=== PATIENT | female | born 1995 | race Two or more races ===

== ENCOUNTER 2020-04-23 11:05 | Observation (INO) | payer BC, MEDICAID ==
[2020-04-23 13:04] LABS: Basophils # (auto) 0 10 ^3/uL (0-0.2); Basophils % (auto) 0.4 % (0.0-2.0); Eosinophils # (auto) 0 10 ^3/uL (0-0.8); Eosinophils % (auto) 0.2 % (0.0-7.0); Hematocrit 34.4 % (36.0-46.0); Hemoglobin 11.7 g/dL (12.2-16.2); Lymphocytes # (auto) 1.4 10 ^3/uL (0.4-5.4); Lymphocytes % (auto) 16.2 % (10.0-50.0); Mean Corpuscular Hgb Conc. 34.1 g/dL (32.0-36.0); Mean Corpuscular Volume 96.6 fL (80.0-100.0); Monocytes # (auto) 0.7 10 ^3/uL (0-1.3); Monocytes % (auto) 7.5 % (0.0-12.0); Neutrophils # (auto) 6.7 10 ^3/uL (1.6-8.6); Neutrophils % (auto) 75.7 % (37.0-80.0); Platelet Count (auto) 235 10^3/uL (140-450); Red Blood Cells 3.56 10^6/uL (4.0-5.20); Red Cell Distribution Width 13.8 % (11.8-14.3); White Blood Cell 8.9 10^3/uL (4.4-10.8)
[2020-04-23 13:21] LABS: Albumin 2.8 g/dL (3.4-5.0); Calcium 8.3 mg/dL (8.5-10.1); Potassium 3.7 mmol/L (3.5-5.1)
[2020-04-23 13:25] LABS: Bilirubin, Total 0.3 mg/dL (0.2-1.0); Total Protein 6.4 g/dL (6.4-8.2); Uric Acid 3.4 mg/dL (2.6-6.0)
== END 2020-04-23 13:50 | disposition home or self-care (01) | DRG 833 ==
LOC: LDRP 11:05
PROVIDERS: ADMIT Specialist; ATTEND Specialist
DX: O26.892 Other specified pregnancy related conditions, second trimester (principal); L29.9 Pruritus, unspecified; Z3A.23 23 weeks gestation of pregnancy
CPT/HCPCS: 36415; 59025; 80053; 81002; 84550; 85025; G0378

== ENCOUNTER 2020-06-03 02:05 | Observation (INO) | payer BC, MEDICAID ==
[~2020-06-03] VITALS: Ht 170.2 cm; Wt 74.8 kg
[2020-06-03] MEDS ORDERED: LACTATED RINGER'S 1,000 ML IV SCH (02:29)
[2020-06-03] MEDS ORDERED: LACTATED RINGER'S 1,000 ML IV ONE (02:29)
[2020-06-03] MEDS ORDERED: TERBUTALINE SULFATE 1 MG/ML 1ML VIAL SC ONE (02:42)
[2020-06-03] MEDS ORDERED: PREN1TAB52 PO (03:13)
[2020-06-03] MEDS ORDERED: URSO300C9 PO (03:14)
[2020-06-03] MEDS ORDERED: LEVO150T10 PO (03:14)
[2020-06-03] MEDS: TERBUTALINE SULFATE 1 MG/ML 1ML VIAL SC SCH ×2 (03:20→04:04)
== END 2020-06-03 05:00 | disposition still patient (30) ==
LOC: LDRP 02:05
PROVIDERS: ADMIT Obstetrics & Gynecology; ATTEND Obstetrics & Gynecology
DX: O9A.213 Injury, poisoning and certain other consequences of external causes complicating pregnancy, third trimester (principal); O26.893 Other specified pregnancy related conditions, third trimester; R10.9 Unspecified abdominal pain; R06.02 Shortness of breath; Z3A.29 29 weeks gestation of pregnancy; W01.198A Fall on same level from slipping, tripping and stumbling with subsequent striking against other object, initial encounter; Y93.89 Activity, other specified; Y92.89 Other specified places as the place of occurrence of the external cause
CPT/HCPCS: 59025; 76815; 81002; 82962; 94760; 96360; 96372; G0378; J3105

== ENCOUNTER 2020-06-03 05:12 | Emergency (ER) | payer BC, MEDICAID ==
[~2020-06-03] VITALS: Ht 170.2 cm; Wt 74.8 kg
[~2020-06-03 05:12] MED LIST: LEVO150T10 PO; PREN1TAB52 PO; URSO300C9 PO
[2020-06-03 07:39] VITALS: BP 120/67
== END 2020-06-03 07:53 | disposition home or self-care (01) ==
LOC: ER 05:12
DX: O26.893 Other specified pregnancy related conditions, third trimester (principal); S66.811A Strain of other specified muscles, fascia and tendons at wrist and hand level, right hand, initial encounter; Z88.8 Allergy status to other drugs, medicaments and biological substances; Z79.899 Other long term (current) drug therapy; Z3A.29 29 weeks gestation of pregnancy; W10.8XXA Fall (on) (from) other stairs and steps, initial encounter; Y93.89 Activity, other specified; Y92.89 Other specified places as the place of occurrence of the external cause; Y99.8 Other external cause status

== ENCOUNTER 2020-06-21 10:02 | Observation (INO) | payer BC, MEDICAID | END 2020-06-21 11:25 | disposition home or self-care (01) | LOC: LDRP 10:02 | PROVIDERS: ADMIT Obstetrics & Gynecology; ATTEND Obstetrics & Gynecology | DX: O23.43 Unspecified infection of urinary tract in pregnancy, third trimester (principal); Z3A.32 32 weeks gestation of pregnancy | CPT/HCPCS: 59025; 81002; 87086; G0378 ==

== ENCOUNTER 2020-06-27 10:49 | Observation (INO) | payer BC, MEDICAID ==
[2020-06-27] MEDS ORDERED: CEPH250C PO ×2 (11:32→11:33)
[2020-06-27 14:05] LABS: Albumin 2.3 g/dL (3.4-5.0); Calcium 8.5 mg/dL (8.5-10.1); Potassium 3.5 mmol/L (3.5-5.1)
[2020-06-27 14:08] LABS: BUN/Creatinine Ratio 7.9
[2020-06-27 14:24] LABS: Bilirubin, Total 0.4 mg/dL (0.2-1.0); Total Protein 6.1 g/dL (6.4-8.2)
== END 2020-06-27 12:48 | disposition home or self-care (01) ==
LOC: LDRP 10:49
PROVIDERS: ADMIT Specialist; ATTEND Specialist
DX: O26.613 Liver and biliary tract disorders in pregnancy, third trimester (principal); K83.1 Obstruction of bile duct; Z3A.33 33 weeks gestation of pregnancy
CPT/HCPCS: 36415; 59025; 76818; 80053; 81002; G0378

== ENCOUNTER 2020-07-01 13:07 | Observation (INO) | payer BC, MEDICAID ==
[~2020-07-01 13:07] MED LIST changes: +CEPH250C PO
== END 2020-07-01 14:35 | disposition home or self-care (01) ==
LOC: LDRP 13:07
PROVIDERS: ADMIT Obstetrics & Gynecology; ATTEND Obstetrics & Gynecology
DX: O26.613 Liver and biliary tract disorders in pregnancy, third trimester (principal); K83.1 Obstruction of bile duct; Z3A.33 33 weeks gestation of pregnancy
CPT/HCPCS: 59025; 76818; 81002; G0378

== ENCOUNTER 2020-07-01 13:53 | Observation (INO) | payer BC, MEDICAID | END 2020-07-01 14:35 | disposition home or self-care (01) | LOC: LDRP 13:53 | PROVIDERS: ADMIT Obstetrics & Gynecology; ATTEND Obstetrics & Gynecology | DX: O36.5930 Maternal care for other known or suspected poor fetal growth, third trimester, not applicable or unspecified (principal); Z3A.33 33 weeks gestation of pregnancy | CPT/HCPCS: G0378 ==

== ENCOUNTER 2020-07-04 10:27 | Observation (INO) | payer BC, MEDICAID ==
[~2020-07-04 10:27] MED LIST changes: -CEPH250C PO
[2020-07-04 13:19] LABS: Albumin 2.5 g/dL (3.4-5.0); Calcium 8.4 mg/dL (8.5-10.1)
[2020-07-04 13:23] LABS: BUN/Creatinine Ratio 6.3; Bilirubin, Total 0.4 mg/dL (0.2-1.0); Total Protein 6.2 g/dL (6.4-8.2)
[2020-07-04 13:36] LABS: Potassium 3.9 mmol/L (3.5-5.1)
== END 2020-07-04 13:32 | disposition home or self-care (01) ==
LOC: LDRP 10:27
PROVIDERS: ADMIT Specialist; ATTEND Specialist
DX: O26.613 Liver and biliary tract disorders in pregnancy, third trimester (principal); K83.1 Obstruction of bile duct; Z3A.34 34 weeks gestation of pregnancy
CPT/HCPCS: 36415; 59025; 76818; 80053; 81002; G0378

== ENCOUNTER 2020-07-11 13:39 | Observation (INO) | payer BC, MEDICAID ==
[~2020-07-11] VITALS: Ht 30.5 cm; Wt 0.5 kg
[2020-07-11] MEDS ORDERED: LACTATED RINGER'S 1,000 ML IV ONE (15:15)
[2020-07-11 16:02] LABS: Albumin 2.5 g/dL (3.4-5.0); Calcium 8.1 mg/dL (8.5-10.1); Potassium 3.8 mmol/L (3.5-5.1)
[2020-07-11 16:06] LABS: BUN/Creatinine Ratio 7.8; Bilirubin, Total 0.5 mg/dL (0.2-1.0); Total Protein 6.1 g/dL (6.4-8.2)
== END 2020-07-11 17:13 | disposition home or self-care (01) ==
LOC: LDRP 13:39 → UNDOADMOB 13:39 → UNDODISOB 17:13
PROVIDERS: ADMIT Specialist; ATTEND Specialist
DX: O60.03 Preterm labor without delivery, third trimester (principal); O26.613 Liver and biliary tract disorders in pregnancy, third trimester; K83.1 Obstruction of bile duct; O99.283 Endocrine, nutritional and metabolic diseases complicating pregnancy, third trimester; E03.9 Hypothyroidism, unspecified; O26.893 Other specified pregnancy related conditions, third trimester; L29.9 Pruritus, unspecified; Z87.891 Personal history of nicotine dependence; Z79.899 Other long term (current) drug therapy; Z3A.35 35 weeks gestation of pregnancy
CPT/HCPCS: 36415; 59025; 76818; 80053; 81002; 96360; G0378

== ENCOUNTER 2020-07-15 11:08 | Observation (INO) | payer BC, MEDICAID ==
[~2020-07-15] VITALS: Ht 170.2 cm; Wt 79.4 kg
[2020-07-15 13:30] LABS: Urine Bacteria FEW /hpf (None Seen); Urine Blood Negative /uL (Negative); Urine Specific Gravity 1.006 (1.001-1.035); Urine WBC 10 /hpf (0 - 5)
[2020-07-15] MEDS ORDERED: NIF10C PO (13:31)
[2020-07-15 13:41] LABS: Alcohol, Urine < 3.0 mg/dL (0-10); Amphetamine Screen, Urine NEGATIVE (NEGATIVE); Barbiturate Scree,Urine NEGATIVE (NEGATIVE); Benzodiazephine Screen, Urine NEGATIVE (NEGATIVE); Cannabinoid Screen, Urine NEGATIVE (NEGATIVE); Cocaine Screen, Urine NEGATIVE (NEGATIVE); Opiate Scree,Urine NEGATIVE (NEGATIVE); Phencyclidine Screen, Urine NEGATIVE (NEGATIVE)
[2020-07-15] MEDS ORDERED: cefTRIAXone 1GM/50ML D5W 50 ML IV ONE (13:45)
== END 2020-07-15 15:50 | disposition home or self-care (01) ==
LOC: LDRP 11:08 → TELE 14:00 → LDRP 14:02
PROVIDERS: ADMIT Specialist; ATTEND Specialist
DX: O26.613 Liver and biliary tract disorders in pregnancy, third trimester (principal); K83.1 Obstruction of bile duct; Z87.891 Personal history of nicotine dependence; Z79.899 Other long term (current) drug therapy; Z3A.35 35 weeks gestation of pregnancy
CPT/HCPCS: 59025; 76818; 80307; 81001; 81002; 96365; G0378; J0696

== ENCOUNTER 2020-07-18 13:58 | Observation (INO) | payer BC, MEDICAID ==
[~2020-07-18 13:58] MED LIST changes: +NIF10C PO
== END 2020-07-18 15:03 | disposition home or self-care (01) ==
LOC: LDRP 13:58
PROVIDERS: ADMIT Obstetrics & Gynecology; ATTEND Obstetrics & Gynecology
DX: O26.613 Liver and biliary tract disorders in pregnancy, third trimester (principal); K83.1 Obstruction of bile duct; O60.03 Preterm labor without delivery, third trimester; Z87.891 Personal history of nicotine dependence; Z3A.36 36 weeks gestation of pregnancy
CPT/HCPCS: 59025; 76818; 81002; G0378

== ENCOUNTER 2020-07-22 10:43 | Observation (INO) | payer BC, MEDICAID ==
[2020-07-22 11:52] LABS: Basophils # (auto) 0 10 ^3/uL (0-0.2); Basophils % (auto) 0.3 % (0.0-2.0); Eosinophils # (auto) 0 10 ^3/uL (0-0.8); Eosinophils % (auto) 0.5 % (0.0-7.0); Hemoglobin 11.4 g/dL (12.2-16.2); Lymphocytes # (auto) 1.4 10 ^3/uL (0.4-5.4); Lymphocytes % (auto) 17.4 % (10.0-50.0); Mean Corpuscular Hemoglobin 30.7 pg (28.0-32.0); Mean Corpuscular Hgb Conc. 33.5 g/dL (32.0-36.0); Mean Corpuscular Volume 91.7 fL (80.0-100.0); Monocytes # (auto) 0.6 10 ^3/uL (0-1.3); Monocytes % (auto) 7.1 % (0.0-12.0); Neutrophils # (auto) 6.1 10 ^3/uL (1.6-8.6); Neutrophils % (auto) 74.7 % (37.0-80.0); Platelet Count (auto) 183 10^3/uL (140-450); Red Blood Cells 3.71 10^6/uL (4.0-5.20); Red Cell Distribution Width 14.2 % (11.8-14.3); White Blood Cell 8.2 10^3/uL (4.4-10.8)
[2020-07-22 12:28] LABS: Albumin 2.4 g/dL (3.4-5.0); Potassium 3.9 mmol/L (3.5-5.1)
[2020-07-22 13:01] LABS: BUN/Creatinine Ratio 6.3; Bilirubin, Total 0.4 mg/dL (0.2-1.0); Total Protein 6.2 g/dL (6.4-8.2)
== END 2020-07-22 12:50 | disposition home or self-care (01) ==
LOC: LDRP 10:43
PROVIDERS: ADMIT Obstetrics & Gynecology; ATTEND Obstetrics & Gynecology
DX: O26.613 Liver and biliary tract disorders in pregnancy, third trimester (principal); K83.1 Obstruction of bile duct; Z3A.36 36 weeks gestation of pregnancy
CPT/HCPCS: 36415; 59025; 76818; 80053; 81002; 85025; G0378

== ENCOUNTER 2020-07-23 16:02 | Inpatient (IN) | payer BC, MEDICAID ==
[~2020-07-23] VITALS: Ht 170.2 cm; Wt 78.5 kg
[2020-07-23] MEDS ORDERED: PENICILLIN G POT 5MIL/D5 50ML 50 ML IV ONE (18:00)
[2020-07-23] MEDS ORDERED: BUTORPHANOL TARTRATE 2 MG/1 ML VIAL IV PRN ×2 (18:00)
[2020-07-23] MEDS ORDERED: DERMOPLAST 60ML BOTTLE TOP PRN (18:00)
[2020-07-23] MEDS ORDERED: WITCH HAZEL-GLYCERIN PAD TOP PRN (18:00)
[2020-07-23] MEDS ORDERED: PHISODERM TOP SOLN 240ML BTL TOP PRN (18:00)
[2020-07-23] MEDS ORDERED: PROMETHAZINE HCL 25 MG/ML 1ML IM PRN (18:00)
[2020-07-23] MEDS ORDERED: BETAMETHASONE ACET (6MG/ML) 5ML VIAL IM ONE (18:15)
[2020-07-23 18:39] LABS: Basophils # (auto) 0 10 ^3/uL (0-0.2); Basophils % (auto) 0.4 % (0.0-2.0); Eosinophils # (auto) 0 10 ^3/uL (0-0.8); Eosinophils % (auto) 0.2 % (0.0-7.0); Hematocrit 34.8 % (36.0-46.0); Hemoglobin 11.7 g/dL (12.2-16.2); Lymphocytes # (auto) 1.8 10 ^3/uL (0.4-5.4); Lymphocytes % (auto) 15.8 % (10.0-50.0); Mean Corpuscular Hemoglobin 30.7 pg (28.0-32.0); Mean Corpuscular Hgb Conc. 33.7 g/dL (32.0-36.0); Mean Corpuscular Volume 91.1 fL (80.0-100.0); Monocytes # (auto) 0.8 10 ^3/uL (0-1.3); Monocytes % (auto) 6.7 % (0.0-12.0); Neutrophils # (auto) 8.9 10 ^3/uL (1.6-8.6); Neutrophils % (auto) 76.9 % (37.0-80.0); Platelet Count (auto) 187 10^3/uL (140-450); Red Blood Cells 3.82 10^6/uL (4.0-5.20); Red Cell Distribution Width 14.4 % (11.8-14.3); White Blood Cell 11.5 10^3/uL (4.4-10.8)
[2020-07-23 18:48] LABS: INR 0.92 (0.9-1.15); Partial Thromboplastin Time 25.6 sec (23.0-31.2)
[2020-07-23 18:53] LABS: Albumin 2.5 g/dL (3.4-5.0); Calcium 8.4 mg/dL (8.5-10.1); Potassium 3.5 mmol/L (3.5-5.1)
[2020-07-23 18:59] LABS: BUN/Creatinine Ratio 8.1; Bilirubin, Total 0.6 mg/dL (0.2-1.0); Total Protein 6.5 g/dL (6.4-8.2); Uric Acid 4.5 mg/dL (2.6-6.0)
[2020-07-23 19:06] LABS: Urine Bacteria NONE SEEN /hpf (None Seen); Urine Blood 3+ /uL (Negative); Urine Specific Gravity 1.004 (1.001-1.035); Urine WBC 3 /hpf (0 - 5)
[2020-07-23 19:19] LABS: Alcohol, Urine < 3.0 mg/dL (0-10); Amphetamine Screen, Urine NEGATIVE (NEGATIVE); Barbiturate Scree,Urine NEGATIVE (NEGATIVE); Benzodiazephine Screen, Urine NEGATIVE (NEGATIVE); Cannabinoid Screen, Urine NEGATIVE (NEGATIVE); Cocaine Screen, Urine NEGATIVE (NEGATIVE); Opiate Scree,Urine NEGATIVE (NEGATIVE); Phencyclidine Screen, Urine NEGATIVE (NEGATIVE)
[2020-07-23] MEDS: LACTATED RINGER'S 1,000 ML IV SCH (20:04)
[2020-07-23] MEDS ORDERED: PENICILLIN G POTASSIUM 2,500,000 UNITS in D5W 5% 50 ML IV SCH (22:00)
[2020-07-23] MEDS ORDERED: PROMETHAZINE HCL 25 MG/ML 1ML IV PRN (23:00)
[2020-07-23] MEDS: PENICILLIN G POTASSIUM 2,500,000 UNITS in D5W 5% 50 ML IV SCH (23:44)
[2020-07-24] MEDS ORDERED: ePHEDrine SULFATE 50 MG/ML AMP IV ONE (01:30)
[2020-07-24] MEDS ORDERED: fentaNYL CITRATE 100 MCG/2 ML VL IV ONE (01:30)
[2020-07-24] MEDS ORDERED: NALOXONE HCL 0.4 MG/ML VIAL IV ONE (01:30)
[2020-07-24] MEDS ORDERED: ROPIVACAINE HCL 200 ML EPI SCH ×2 (01:30→02:15)
[2020-07-24] MEDS ORDERED: LIDOCAINE 2%HCL (LOCAL ANESTH.) INJ 20ML MDV IJ ONE (01:45)
[2020-07-24] MEDS: LACTATED RINGER'S 1,000 ML IV SCH ×2 (02:24→06:19)
[2020-07-24] MEDS: PENICILLIN G POTASSIUM 2,500,000 UNITS in D5W 5% 50 ML IV SCH (05:32)
[2020-07-24] MEDS ORDERED: LACT. RINGERS/OXYTOCIN 20UNITS 1,000 ML IV ONE ×2 (07:51→08:15)
[2020-07-24] MEDS ORDERED: IBUPROFEN 600 MG TAB PO PRN (08:30)
[2020-07-24] MEDS ORDERED: LACT. RINGERS/OXYTOCIN 20UNITS 1,000 ML IV SCH (09:15)
--- NOTE | 2020-07-24 10:28 | NUR ---
Ambulation: Patient OOB with standby assistance by RN. Patient ambulated to bathroom with steady gait. [facility]icare teaching provided with returned demonstration by patient. Unable to urinate at this time. Clean gown provided and bed linen changed. Patient ambulated back to bed with steady gait and no distress noted.
--- NOTE | 2020-07-24 10:29 | NUR ---
teaching given to pt Pt informed on benefits of , latch, and positions explained, pt verbalized understanding.
[2020-07-24 11:00] VITALS: BP 103/55
[2020-07-24] MEDS: IBUPROFEN 600 MG TAB PO PRN ×2 (14:34→19:25)
[2020-07-24 15:00] VITALS: BP 97/52
[2020-07-24 18:30] VITALS: BP 101/51
[2020-07-24 23:00] VITALS: BP 99/54
[2020-07-25 02:30] VITALS: BP 108/61
[2020-07-25] MEDS: IBUPROFEN 600 MG TAB PO PRN ×2 (03:10→15:05)
[2020-07-25 06:06] LABS: RPR Non Reactive (Non Reactive)
[2020-07-25 06:34] VITALS: BP 101/65
--- NOTE | 2020-07-25 06:42 | NUR ---
IV removal IV DC'd with sterile technique, catheter fully intact. Pressure dressing applied to site. Patient tolerated well.
--- NOTE | 2020-07-25 10:15 | NUR ---
REPORT RECEIVED FROM Bang RICHTER RN.
[2020-07-25 10:47] VITALS: BP 117/60
--- NOTE | 2020-07-25 10:49 | NUR ---
Discharge: Discharge instructions given as ordered. Pt encouraged to follow up with CHIEF OPERATOR HYDROFORMER as instructed. All questions and concerns addressed. Patient verbalized understanding. Medication reconciliation completed and copy given to patient. Patient encouraged to prepare to depart unit.
[2020-07-25] MEDS ORDERED: LEVO150T10 PO (11:51)
[2020-07-25 14:42] VITALS: BP 99/53
--- NOTE | 2020-07-25 16:29 | NUR ---
Discharge: Patient taken to vehicle via ambulated with all personal belongings, accompanied by staff and family member. No distress noted at time of departure, no adverse changes in status since initial assessment.
== END 2020-07-25 16:29 | disposition home or self-care (01) | DRG 805 ==
LOC: LDRP 16:02 → OBSVTOIN 17:50 → LDRP 17:51
PROVIDERS: ADMIT Obstetrics & Gynecology; ATTEND Obstetrics & Gynecology
PROC: 10E0XZZ Delivery of Products of Conception, External Approach (ICD-10-PCS; principal; 2020-07-24)
PROC: 3E0R3BZ Introduction of Anesthetic Agent into Spinal Canal, Percutaneous Approach (ICD-10-PCS; 2020-07-24)
PROC: 00HU33Z Insertion of Infusion Device into Spinal Canal, Percutaneous Approach (ICD-10-PCS; 2020-07-24)
DX: O26.62 Liver and biliary tract disorders in childbirth (principal); O60.23X0 Term delivery with preterm labor, third trimester, not applicable or unspecified; Z37.0 Single live birth; K83.1 Obstruction of bile duct; O76 Abnormality in fetal heart rate and rhythm complicating labor and delivery; Z20.828 Contact with and (suspected) exposure to other viral communicable diseases; Z3A.37 37 weeks gestation of pregnancy; Z88.8 Allergy status to other drugs, medicaments and biological substances
CPT/HCPCS: 36415; 59025; 59409; 76815; 80053; 80307; 81001; 84550; 85025; 85610; 85730; 86592; 86850; 86900; 86901; 87426; 96360; 96361; 96365; 96366; 96374; 96375; G0378; J2540; J2590; J7060

== ENCOUNTER 2024-05-23 08:07 | Emergency (ER) | payer BC, MEDICAID ==
[~2024-05-23] VITALS: Ht 170.2 cm; Wt 70.0 kg
[~2024-05-23 08:07] MED LIST changes: -NIF10C PO; -URSO300C9 PO
[2024-05-23 08:48] LABS: Basophils # (auto) 0 10 ^3/uL (0-0.2); Basophils % (auto) 0.4 % (0.0-2.0); Eosinophils # (auto) 0 10 ^3/uL (0-0.8); Eosinophils % (auto) 0.4 % (0.0-7.0); Hematocrit 37.7 % (36.0-46.0); Lymphocytes # (auto) 1.5 10 ^3/uL (0.4-5.4); Lymphocytes % (auto) 22.2 % (10.0-50.0); Mean Corpuscular Hemoglobin 33.2 pg (28.0-32.0); Mean Corpuscular Hgb Conc. 34.4 g/dL (32.0-36.0); Mean Corpuscular Volume 96.3 fL (80.0-100.0); Monocytes # (auto) 0.6 10 ^3/uL (0-1.3); Monocytes % (auto) 9.6 % (0.0-12.0); Neutrophils # (auto) 4.5 10 ^3/uL (1.6-8.6); Neutrophils % (auto) 67.4 % (37.0-80.0); Nucleated Red Blood Cells % 0.1 %; Platelet Count (auto) 314 10^3/uL (140-450); Red Blood Cells 3.92 10^6/uL (4.0-5.20); Red Cell Distribution Width 15.1 % (11.8-14.3); White Blood Cell 6.6 10^3/uL (4.4-10.8)
[2024-05-23 09:12] LABS: Alanine Aminotransferase 26 U/L (7-40); Albumin 4.9 g/dL (3.2-4.8); Alkaline Phosphatase 66 U/L (46-116); Anion Gap 8 (5-15); Aspartate Aminotransferase 24 U/L (13-40); BUN/Creatinine Ratio 9.8 (10.0-20.0); Blood Urea Nitrogen 8 mg/dL (9-23); Calcium 10.5 mg/dL (8.7-10.4); Carbon Dioxide 27 mmol/L (20-30); Chloride 103 mmol/L (98-107); Glucose 109 mg/dL (74-106); Sodium 138 mmol/L (136-145)
[2024-05-23 09:13] LABS: Bilirubin, Total 1.1 mg/dL (0.2-1.0); Total Protein 8.2 g/dL (5.7-8.2)
[2024-05-23 09:24] LABS: Urine Bacteria FEW /hpf (None Seen); Urine Blood Negative /uL (Negative); Urine Clarity Turbid (Clear); Urine Color Yellow (Yellow); Urine Mucus FEW (None Seen); Urine Protein, UAD 2+ (Negative); Urine Urobilinogen 3 mg/dL (Negative); Urine WBC 8 /hpf (0 - 5); Urine pH 6.5 (5.0-9.0)
[2024-05-23 09:55] LABS: Amphetamine Screen, Urine Neg (NEGATIVE)
[2024-05-23 09:57] LABS: Barbiturate Scree,Urine Neg (NEGATIVE)
[2024-05-23 09:58] LABS: Cocaine Screen, Urine Neg (NEGATIVE); Opiate Scree,Urine Neg (NEGATIVE)
[2024-05-23 09:59] LABS: Benzodiazephine Screen, Urine Neg (NEGATIVE); Cannabinoid Screen, Urine Neg (NEGATIVE); Phencyclidine Screen, Urine Neg (NEGATIVE)
[2024-05-23 11:05] VITALS: BP 107/56; PULSE 69; RESP 16; TEMP 98.2; O2SAT 99
[2024-05-23] MEDS: LORazepam 0.5 MG TAB PO ONE (14:07)
== END 2024-05-23 17:30 | disposition left against medical advice (07) ==
LOC: ER 08:07
DX: F41.9 Anxiety disorder, unspecified (principal); R07.89 Other chest pain; E03.9 Hypothyroidism, unspecified; F17.210 Nicotine dependence, cigarettes, uncomplicated; Z98.890 Other specified postprocedural states; Z88.8 Allergy status to other drugs, medicaments and biological substances; Z79.899 Other long term (current) drug therapy
CPT/HCPCS: 36415; 71045; 80053; 80307; 81001; 84443; 84484; 85025; 93005

== ENCOUNTER 2025-03-30 06:17 | Day surgery (SDC) | payer MEDICAID ==
[2025-03-28 11:22] LABS: Hematocrit 33.7 % (36.0-46.0); Hemoglobin 11.8 g/dL (12.2-16.2); Mean Corpuscular Hemoglobin 34.7 pg (28.0-32.0); Mean Corpuscular Volume 99.3 fL (80.0-100.0); Nucleated Red Blood Cells % 0.0 %
[2025-03-28 11:23] LABS: Urine Protein, UAD Negative (Negative)
--- NOTE | 2025-03-28 11:31 | DVHHP ---
ADMIT DATE: 03/30/2025 CHIEF COMPLAINT: Desires bilateral tubal ligation. HISTORY OF PRESENT ILLNESS: The patient is a 29-year-old 3, para 2-0-1-2 admitted for laparoscopic placement of Filshie clips. The patient does not want any other form of contraception. She wishes to have bilateral tubal ligation. Risks, complications, failure rate, and use of Filshie clips discussed with the patient. The patient fully understands. She wishes to proceed with planned procedure. PAST MEDICAL HISTORY: None. PAST SURGICAL HISTORY: D and C. SOCIAL HISTORY: None. FAMILY HISTORY: None. OBSTETRIC AND GYNECOLOGIC HISTORY: 2 normal vaginal deliveries. REVIEW OF SYSTEMS: Consistent with HPI. PHYSICAL EXAMINATION: VITAL SIGNS: Stable, afebrile. HEENT: Within normal limits. CARDIOVASCULAR: Regular rate and rhythm. LUNGS: Clear to auscultation. BREASTS: Symmetrical, no masses. ABDOMEN: Soft, nontender. PELVIC: External genitalia within normal limits. Vagina normal. Cervix grossly normal appearing. Uterus 7-week size. Adnexa nonpalpable. EXTREMITIES: No clubbing, cyanosis, or edema. IMPRESSION: Multiparity, desires tubal sterilization. PLAN: Laparoscopic placement of Filshie clips. Informed consent obtained. Risks and complications of surgery including infection, bleeding, hematoma formation, injury to bowel or bladder, surrounding organ, possibility of DVT, pulmonary embolism, and risks of anesthesia were discussed with the patient. Options reviewed. All questions answered. The patient fully understands. She wishes to proceed with planned procedure. DO ALESSIO Albararn/ANYI/MARCI TID: [id number] RECEIPT: [id number]
[2025-03-28 11:44] LABS: INR 1.07 (0.9-1.15); Partial Thromboplastin Time 28.5 SEC (24.5-34.5); Prothrombin Time 11.3 sec (9.3-11.8)
[2025-03-28 11:46] LABS: Alanine Aminotransferase 16 U/L (7-40); Alkaline Phosphatase 50 U/L (46-116); Anion Gap 8 (5-15); BUN/Creatinine Ratio 15.6 (10.0-20.0); Blood Urea Nitrogen 14 mg/dL (9-23); Calcium 10.0 mg/dL (8.7-10.4); Carbon Dioxide 27 mmol/L (20-31); Chloride 104 mmol/L (98-107); Glucose 82 mg/dL (74-106); Potassium 4.2 mmol/L (3.5-5.1); Sodium 139 mmol/L (136-145); Total Protein 7.9 g/dL (5.7-8.2)
[2025-03-28 11:47] LABS: Albumin 5.1 g/dL (3.2-4.8); Bilirubin, Total 1.3 mg/dL (0.2-1.0)
[~2025-03-30] VITALS: Ht 170.2 cm; Wt 68.0 kg
[2025-03-30] MEDS ORDERED: SUCCINYLCHOLINE CHLORIDE 20 MG/ML 10ML VIAL IV ONE (06:54)
[2025-03-30] MEDS ORDERED: fentaNYL CITRATE 100 MCG/2 ML VL ONE (06:57)
[2025-03-30] MEDS ORDERED: HYDROmorphone HCL 2 MG/ML VL/or syr ONE (06:57)
[2025-03-30] MEDS ORDERED: PROPOFOL 10 MG/ML 20 ML IV ONE (06:58)
[2025-03-30] MEDS ORDERED: ONDANSETRON HCL 4 MG/2 ML VIAL ONE (07:09)
[2025-03-30] MEDS: ceFAZolin 2 GM/D5W50ml 50 ML IV ONE (07:10)
[2025-03-30] MEDS ORDERED: IBUP-1456 PO (07:12)
[2025-03-30] MEDS ORDERED: ZOFR4T PO (07:12)
[2025-03-30] MEDS ORDERED: HYDR-4072 PO (07:12)
[2025-03-30] MEDS ORDERED: ROCURONIUM 10MG/ML 10ML VIAL IV ONE (07:14)
[2025-03-30] MEDS ORDERED: LACTATED RINGER'S 1,000 ML IV SCH (07:15)
[2025-03-30] MEDS ORDERED: ONDANSETRON HCL 4 MG/2 ML VIAL IV PRN (07:15)
[2025-03-30] MEDS ORDERED: SUGAMMADEX 200mg/2ml Vial (100MG/ML) IV ONE (07:34)
[2025-03-30] MEDS: LIDOCAINE W/ EPINEPHRINE 1% 20ML VIAL ONE (07:38)
[2025-03-30] MEDS: BUPIVACAINE HCL 0.25% P/F 10 ML VIAL ONE (07:38)
[2025-03-30 07:44] VITALS: O2SAT 99
--- NOTE | 2025-03-30 07:58 | DVHOP2 ---
Operative Report DATE OF OPERATION: 03/30/25 PREOPERATIVE DIAGNOSES: 1. Desires elective tubal sterilization. POSTOPERATIVE DIAGNOSES: 1. Desires elective tubal sterilization. SURGEON: Juanita Ny D.O./marcus ANESTHESIOLOGIST: gila TYPE OF ANESTHESIA : General. CONSENT: The patient was informed of the risks and benefits of the procedure. The patient was informed of the risks and benefits of the procedure. These include but are not limited to , complications of anesthesia, postoperative infection, incomplete relief of symptoms, recurrence of symptoms, damage to blood vessels, nerves and tendons, deep venous thrombosis, pulmonary embolism and possible need for repeat surgery in the future. FINDINGS: Cervix is grossly normal appearing. Uterus is 10 weeks' size. Adnexa nonpalpable. COMPLICATIONS: None. BLOOD PRODUCTS USED: None. PROCEDURES: Laparoscopic placement of Filschi Clips to bilateral tubes PROCEDURE IN DETAIL: The patient was taken to the operating room where she was placed under general anesthesia. The patient was then prepped and draped in the usual sterile manner in the dorsal lithotomy position. The bladder was emptied using a straight catheter. Examination under anesthesia revealed the above findings. A weighted speculum was placed in the vagina. The anterior lip of the cervix was grasped using single-tooth tenaculum. Cervix was dilated. Uterus sounded to 10 cm. HUMI catheter was placed. Attention was then turned to the abdomen where a Veress needle was introduced. Abdomen was distended with 3L of CO2 gas. Using Visiport, abdomen was entered under direct visualization. Survey of abdominal cavity revealed normal finding. A 8 mm trocar was placed into the suprapubic region. Filshie clip was then loaded on the right tube as well as the left. No bleeding was noted. All the instruments were removed from the abdomen and pelvis. CO2 gas released. Incisional ports were closed using #4-0 Vicryl and kelsey for the larger port. The patient tolerated the procedure well. All instruments were removed from the patient's cervix. The patient was taken to the recovery room in a stable condition. ESTIMATED BLOOD LOSS: 20 mL Visit Coding OBGYN Date of Service: Mar 30, 2025 Billing Provider: JUANITA NY DO MERCHANDISING COORDINATOR Common Visit Codes: [id number] INP/OBS CARE (HIGH) MERCHANDISING COORDINATOR Procedure Codes: 32348-UVB.SURG:ON OVIDUCT/OVARY JUANITA NY DO Mar 30, 2025 07:58
[2025-03-30] MEDS ORDERED: HYDROmorphone HCL 2 MG/ML VL/or syr IV PRN (08:00)
[2025-03-30] MEDS ORDERED: MEPERIDINE HCL (25 MG/ML) 1ML VIAL IV PRN (08:00)
[2025-03-30] MEDS ORDERED: ONDANSETRON HCL 4 MG/2 ML VIAL IV ONE (08:00)
--- NOTE | 2025-03-30 08:00 | POSTOP ---
Post-Operative Note Post-Operative Note Preop Diagnosis desires sterilization Postop Diagnosis: desires sterilization Operation performed laparosocpic placement of filschie clips Specimen na Anesthesia: General Anesthesiologist: annygen Blood Loss(fluid mgmt) 20ml Surgeon Nicky Ny Contracting Officer marcus Implant filschie Complications & Mgmt none Date 03/30/25 Time 07:59 Visit Coding OBGYN Date of Service: Mar 30, 2025 Billing Provider: INCKY NY DO FILLING AND STAPLING MACHINE OPERATOR Common Visit Codes: [id number] INP/OBS CARE (HIGH) FILLING AND STAPLING MACHINE OPERATOR Procedure Codes: [id number]-MKI.SURG:ON OVIDUCT/OVARY NICKY NY DO Mar 30, 2025 08:00
--- NOTE | 2025-03-30 08:01 | DVHDS2 ---
Physician Discharge Progress N Final Diagnosis: desires sterilization Operations or Procedures: Operations or Procedures laparosocpic placement of filschie clips Condition on Discharge: Good Disposition: Home Discharge Instructions: Diet: Regular Activity: Light activity Follow Up/Referral: 1w Medications: zofran, Follow Up Care: Specialist: 1w Discharge Statement: "Patient was advised to return to the ER or call 911 if any headaches, dizziness, shortness of breath, chest pain, abdominal pain, bleeding, fevers, or worsening of medical condition. Patient was counseled about treatment plan, medications, possible side effects, patientverbalized understanding. All questions were answered to the best of my ability. This discharge took greater then 30 minutes in planning, reviewing documentation, counseling the patient, and discussing with other team members." Visit Coding OBGYN Date of Service: Mar 30, 2025 Billing Provider: NICKY MANCIA DO TOUCH UP WORKER Common Visit Codes: [id number] INP/OBS CARE (HIGH) TOUCH UP WORKER Procedure Codes: [id number].SURG:ON OVIDUCT/OVARY NICKY MANCIA DO Mar 30, 2025 08:01
[2025-03-30] MEDS: ACETAMINOPHEN IV 1000 MG/100ML (10MG/ML) IV PRN (08:05)
[2025-03-30 08:41] VITALS: BP 104/61; PULSE 48; RESP 18; O2SAT 96
== END 2025-03-30 08:49 | disposition home or self-care (01) ==
LOC: SUR 06:17
PROVIDERS: ATTEND Obstetrics & Gynecology
DX: Z30.2 Encounter for sterilization (principal); E03.9 Hypothyroidism, unspecified; Z79.899 Other long term (current) drug therapy; Z98.890 Other specified postprocedural states; Z88.8 Allergy status to other drugs, medicaments and biological substances
CPT/HCPCS: 36415; 58671; 80053; 81001; 81025; 84702; 85025; 85610; 85730; 86850; 86900; 86901; A4264; J0330; J0690; J1100; J1171; J2405; J2704; J3010; J3490

== ENCOUNTER 2025-08-28 13:36 | Inpatient (IN) | payer MEDICAID ==
[~2025-08-28] VITALS: Ht 170.2 cm; Wt 72.0 kg
[~2025-08-28 13:36] MED LIST changes: +HYDR-4072 PO; +IBUP-1456 PO; +ZOFR4T PO
[2025-08-28] MEDS: SODIUM CHLORIDE 0.9% 1,000 ML IV ONE (14:30)
[2025-08-28 15:07] LABS: Hematocrit 32.1 % (36.0-46.0); Hemoglobin 11.2 g/dL (12.2-16.2); Mean Corpuscular Hemoglobin 33.9 pg (28.0-32.0); Mean Corpuscular Volume 97.2 fL (80.0-100.0); Nucleated Red Blood Cells % 0.1 %
[2025-08-28 15:22] LABS: Chloride 100 mmol/L (98-107); Potassium 3.6 mmol/L (3.5-5.1); Sodium 139 mmol/L (136-145)
[2025-08-28 15:23] LABS: Anion Gap 8 (5-15); Calcium 10.0 mg/dL (8.7-10.4)
[2025-08-28 15:28] LABS: BUN/Creatinine Ratio 8.9 (10.0-20.0); Blood Urea Nitrogen 11 mg/dL (9-23)
[2025-08-28 15:29] LABS: Carbon Dioxide 31 mmol/L (20-31); Glucose 65 mg/dL (74-106)
--- NOTE | 2025-08-28 16:31 | ED.PDOC ---
History of Present Illness HPI Comments 29 y/o F, with PMHx of Deion's Disease and anxiety presents to the ED for CC of abnormal labs. Patient states, she was sent from her PCP office d/t elevated TSH level of 384. Patient reports symptoms of dizziness, extremity numbness, and increased fatigue in association Patient endorses, being non-complaint with medications for x2-3years. Patient denies nausea, vomiting, constipation, weight loss, brain fog, or irregular menstrual periods. No other symptoms or modifying factors are present at this time. Chief Complaint: Abnormal LAB's Time Seen by MD: 14:11 Primary Care Provider: BURAK Allergies: Coded Allergies: Nitrofurantoin (Verified Allergy, Severe, 06/21/20) THROAT SWELLING Sulfamethoxazole w/Trimethoprim (Verified Allergy, Mild, Red and itchy, 07/23/20) Home Meds Active Scripts Ondansetron Odt 4MG Tab (ZOFRAN PO) 4 Mg Tb, 4 MG PO Q4HPRN PRN for 7 Days, #35 TAB ODT TAB-DISSOLVE IN MOUTH, THEN SWALLOW Prov:NICKY MANCIA DO 03/30/25 Ibuprofen (Ibuprofen) 800 Mg Tab, 800 MG PO TID PRN for 4 Days, #12 TAB Prov:NICKY MANCIA DO 03/30/25 Hydrocodone-Acetaminophen (Hydrocodone/Acetaminophen 10-325 mg) 1 Tab Tab, 1 TAB PO Q6HPRN PRN for 5 Days, #20 TAB Prov:NICKY MANCIA DO 03/30/25 Reported Medications Levothyroxine Sodium (Levothyroxine Sodium) 150 Mcg Tab, 150 MCG PO QAM for 30 Days 07/25/20 Vit W/ Ferrous Fumara ( Vitamins Plus Lo 27-1 mg) 1 Tab Tab, 1 TAB PO for SUPPLEMENT, TAB 06/03/20 Mode of Arrival: Ambulatory Severity: Moderate Timing: Minutes Duration: Since onset Prehospital treatment: None Past Medical History PAST MEDICAL HISTORY: Anxiety, Thyroid RETAIL CLIENT SOLUTIONS ANALYST History: No Pertinent RETAIL CLIENT SOLUTIONS ANALYST History Family History Family History: Unknown Social History Smoker: Cigarettes Alcohol: Denies ETOH Use Drugs: Denies Drug Use Lives In: Home Constitutional: reports: fatigue; denies: chills, diaphoresis, fever, malaise, sweats, weakness, others EENTM: denies: blurred vision, double vision, ear bleeding, ear discharge, ear drainage, ear pain, ear ringing, eye pain, eye redness, hearing loss, mouth pain, mouth swelling, nasal discharge, nose bleeding, nose congestion, nose pain, photophobia, tearing, throat pain, throat swelling, voice changes, others Respiratory: denies: cough, hemoptysis, orthopnea, SOB at rest, shortness of breath, SOB with excertion, stridor, wheezing, others Cardiovascular: denies: chest pain, dizzy spells, diaphoresis, Dyspnea on exertion, edema, irregular heart beat, left arm pain, lightheadedness, palpitations, PND, syncope, others Gastrointestinal: denies: abdomen distended, abdominal pain, blood streaked bowels, constipated, diarrhea, dysphagia, difficulty swallowing, hematemesis, melena, nausea, poor appetite, poor fluid intake, rectal bleeding, rectal pain, vomiting, others Genitourinary: denies: abnormal vagina bleeding, burning, dyspareunia, dysuria, flank pain, frequency, hematuria, incontinence, pain, , vagina discharge, urgency, others Neurological: reports: dizziness, numbness; denies: fainting, headache, left sided numbness, left sided weakness, paresthesia, pre-existing deficit, right sided numbness, right sided weakness, seizure, speech problems, tingling, tremors, weakness, others Musculoskeletal: denies: back pain, gout, joint pain, joint swelling, muscle p ain, muscle stiffness, neck pain, others Integumetry: denies: bruises, change in color, change in hair/nails, dryness, laceration, lesions, lumps, rash, wounds, others Allergic/Immunocompromised: denies: Difficulty Healing, Frequent Infections, Hives, Itching, others Hematologic/Lymphatic: denies: anemia, blood clots, easy bleeding, easy bruising, swollen glands, others Endocrine: denies: excessive hunger, excessive sweating, excessive thirst, excessive urination, flushing, intolerance to cold, intolerance to heat, unexplained weight gain, unexplained weight loss, others Psychiatric: denies: anxiety, bipolar disorder, depression, hopeless, panic disorder, schizophrenia, sleepless, suicidal, others All Other Systems: Reviewed and Negative Physical Exam General Appearance: No Apparent Distress, Normal HEENT: Normal ENT Inspection, Pharynx Normal Neck: Full Range of Motion, Non-Tender, Normal, Normal Inspection Respiratory: Chest Non-Tender, Lungs Clear, No Accessory Muscle Use, No Respiratory Distress, Normal Breath Sounds Cardiovascular: No Edema, No Murmur, No Gallop, Normal Peripheral Pulses, Regular Rate/Rhythm Breast Exam: Deferred Gastrointestinal: No Organomegaly, Non Tender, No Pulsatile Mass, Normal Bowel Sounds, Soft Genitalia: Deferred Pelvic: Deferred Rectal: Deferred Extremities: No calf tenderness, Normal capillary refill, Normal inspection, Normal range of motion, Non-tender, No pedal edema Musculoskeletal : Apperance: Normal Neurologic: Alert, police pilot II-XII nml as Tested, No Motor Deficits, Normal Affect, Normal Mood, No Sensory Deficits Cerebellar Function: Normal Reflexes: Normal Skin: Dry, Normal Color, Warm Lymphatic: No Adenopathy Was a procedure done? Was a procedure done?: No Differential Dx Considerations may include: Deion's disease, hypothyroidism , myxedema coma, adrenal crisis, sepsis X-Ray, Labs, Meds, VS Vital Signs Date Time Temp Pulse Resp B/P (MAP) Pulse Ox O2 Delivery O2 Flow Rate FiO2 08/28/25 13:43 97.6 78 18 115/71 100 97.6 Lab Test 08/28/25 14:18 08/28/25 14:15 08/28/25 13:53 Range/Units White Blood Count 4.2 L 4.4-10.8 10^3/uL Red Blood Count 3.30 L 4.0-5.20 10^6/uL Hemoglobin 11.2 L 12.2-16.2 g/dL Hematocrit 32.1 L 36.0-46.0 % Mean Corpuscular Volume 97.2 80.0-100.0 fL Mean Corpuscular Hemoglobin 33.9 H 28.0-32.0 pg Mean Corpuscular Hemoglobin Concent 34.8 32.0-36.0 g/dL Red Cell Distribution Width 15.4 H 11.8-14.3 % Platelet Count 294 140-450 10^3/uL Mean Platelet Volume 7.4 6.9-10.8 fL Neutrophils (%) (Auto) 47.9 37.0-80.0 % Lymphocytes (%) (Auto) 40.8 10.0-50.0 % Monocytes (%) (Auto) 9.7 0.0-12.0 % Eosinophils (%) (Auto) 0.9 0.0-7.0 % Basophils (%) (Auto) 0.7 0.0-2.0 % Neutrophils # (Auto) 2.0 1.6-8.6 10 ^3/uL Lymphocytes # (Auto) 1.7 0.4-5.4 10 ^3/uL Monocytes # (Auto) 0.4 0-1.3 10 ^3/uL Eosinophils # (Auto) 0 0-0.8 10 ^3/uL Basophils # (Auto) 0 0-0.2 10 ^3/uL Nucleated Red Blood Cells 0.1 % Sodium Level 139 136-145 mmol/L Potassium Level 3.6 3.5-5.1 mmol/L Chloride Level 100 98-107 mmol/L Carbon Dioxide Level 31 20-31 mmol/L Anion Gap 8 5-15 Blood Urea Nitrogen 11 9-23 mg/dL Creatinine 1.24 H 0.550-1.02 mg/dL Glomerular Filtration Rate Calc 60 >90 mL/min BUN/Creatinine Ratio 8.9 L 10.0-20.0 Serum Glucose 65 L 74-106 mg/dL Calcium Level 10.0 8.7-10.4 mg/dL Thyroid Stimulating Hormone (TSH) > 150.00 H 0.55-4.78 uIU/mL Free Thyroxine (T4) Calculated 0.14 L 0.89-1.76 ng/dL Urine Color Colorless Yellow Urine Clarity Clear Clear Urine pH 6.5 5.0-9.0 Urine Specific [place] 1.005 1.001-1.035 Urine Protein Negative Negative Urine Ketones Negative Negative Urine Blood Negative Negative /uL Urine Nitrite Negative Negative Urine Bilirubin Negative Negative Urine Urobilinogen Normal Negative mg/dL Urine Leukocyte Esterase Negative Negative /uL Urine RBC None seen 0 - 4 /hpf Urine Microscopic WBC < 1 0-5 /HPF Urine Squamous Epithelial Cells Few <5 /hpf Urine Bacteria None seen None Seen /hpf Urine Glucose Normal Normal mg/dL POC Glucose 70 70-106 mg/dl Current Medications Medications (Trade) Dose Ordered Sig/Rosey Route Start Time Stop Time Status Last Admin Sodium Chloride 1,000 ml @ 1,000 mls/hr Q1H ONCE IV 08/28/25 14:15 08/28/25 15:14 DC 08/28/25 14:30 X-Ray, Labs, Meds, VS Comment 29-year-old female overall well-appearing here today sent by her PCP after patient was found to have blood work concerning for significant hypothyroidism and patient was also noted to be hypotensive in clinic. Patient also notes multiple symptoms consistent with a hypothyroidism such as constipation, hair loss, and generalized fatigue etc.. Likely secondary to patient being off of her levothyroxine medication for at least two years. Plan made to admit the patient for further management and care of her profound hypothyroidism Time of 1ST Reevaluation: 18:06 Reevaluation 1ST: Unchanged Patient Education/Counseling: Diagnosis, Treatment Family Education/Counseling: No Family Present SEPSIS Sepsis Screen Date sepsis recognized/suspect: Aug 28, 2025 Time Sepsis recognized/suspect: 134 Recent Procedure: No On Antibiotic Therapy: No Respiratory Rate >20: No Heart Rate >90: No Temp<36 C (96.8 F) or >38.3 C: No SBP <90 or MAP <65 mmHG: No New Acute Mental Status Change: No Is the patient on CPAP, BIPAP,: No Vital Signs Date Time Temp Pulse Resp B/P (MAP) Pulse Ox O2 Delivery O2 Flow Rate FiO2 08/28/25 13:43 97.6 78 18 115/71 100 97.6 Laboratory Tests Test 08/28/25 14:18 White Blood Count 4.2 10^3/uL (4.4-10.8) L Medications Medications Dose Ordered Sig/Rosey Route Start Time Stop Time Status Last Admin Dose Admin Sodium Chloride 1,000 ml @ 1,000 mls/hr Q1H ONCE IV 08/28/25 14:15 08/28/25 15:14 DC 08/28/25 14:30 Departure 1 Departure Time of Disposition: 19:05 Impression: Primary Impression: Hypothyroidism Additional Impression: History of Deion thyroiditis Disposition: ADMITTED INPATIENT Admit to: Tele Condition: Guarded Critical Care Note Critical Care Time?: Yes (30 min-critical care time only) Stability Stability form required: No Heart Score Heart Score: Heart Score Response (Comments) Value History N/A 0 EKG N/A 0 Age N/A 0 Risk Factors N/A 0 Troponin N/A 0 Total 0 I personally scribed for HIGINIO GREENE MD ([email or web address]) on 08/28/25 at 16:31. Electronically submitted by Kary Nicole ([email or web address]). HIGINIO GREENE MD Aug 28, 2025 16:31
[2025-08-28 16:36] LABS: Urine Protein, UAD Negative (Negative)
[2025-08-28] MEDS ORDERED: ONDANSETRON HCL 4 MG/2 ML VIAL IV PRN (20:00)
[2025-08-28] MEDS: ACETAMINOPHEN 325 MG TAB PO PRN (20:53)
--- NOTE | 2025-08-28 21:15 | DVHHP2 ---
History of Present Illness Reason for Visit: ABNORMAL LAB RESULTS History of Present Illness 29-year-old female presents for evaluation of abnormal lab results. Patient was contacted by her primary care provider to present for further evaluation. She states her TSH levels were elevated. She reports symptoms of fatigue, hair loss, weight gain and intermittent constipation. She reports not taking her levothyroxine for the past two years. No cardiac complaints. Past Medical History Hypothyroid, Deion's disease Past Surgical History Denies Family History Noncontributory Smoke: <1 pack per day ALCOHOL: none Drugs: None Lives: with Family Review of Systems Review of Systems Review of systems are currently negative otherwise dressing HPI. Allergies: Coded Allergies: Nitrofurantoin (Verified Allergy, Severe, 06/21/20) THROAT SWELLING Sulfamethoxazole w/Trimethoprim (Verified Allergy, Mild, Red and itchy, 07/23/20) Medications Current Medications Medications Dose Ordered Sig/Rosey Route Start Time Stop Time Status Last Admin Dose Admin Levothyroxine Sodium 100 mcg QAM@0600 PO 08/29/25 06:00 UNV Ondansetron HCl 4 mg Q4HP PRN IV 08/28/25 20:00 UNV Acetaminophen 650 mg Q6HP PRN PO 08/28/25 20:00 08/28/25 20:53 650 MG Exam Vital Signs Vital Signs Date Time Temp Pulse Resp B/P (MAP) Pulse Ox O2 Delivery O2 Flow Rate FiO2 08/28/25 20:53 98.6 08/28/25 20:37 68 20 104/63 (77) 100 Exam Gen: 29-year-old female in mild distress. Skin: Warm, dry, normal color and texture, no rash. HEENT: Normocephalic atraumatic, mucous membranes moist and pink. Neck: Cervical and supraclavicular nodes normal without enlargement, trachea is midline, thyroid gland is normal without masses. Pulmonary: Clear to auscultation and percussion bilaterally. Cardiac: Regular rate and rhythm. No murmur Abdomen: Soft, nontender, nondistended, bowel sounds present all 4 quadrants, no guarding, no rigidity, no organomegaly. Extremities: No cyanosis, clubbing, no edema Neuro: Cranial nerves II through XII grossly intact, normal affect and speech, no focal motor deficits. Labs/Xrays Labs Test 08/28/25 14:18 08/28/25 14:15 08/28/25 13:53 Range/Units White Blood Count 4.2 L 4.4-10.8 10^3/uL Red Blood Count 3.30 L 4.0-5.20 10^6/uL Hemoglobin 11.2 L 12.2-16.2 g/dL Hematocrit 32.1 L 36.0-46.0 % Mean Corpuscular Volume 97.2 80.0-100.0 fL Mean Corpuscular Hemoglobin 33.9 H 28.0-32.0 pg Mean Corpuscular Hemoglobin Concent 34.8 32.0-36.0 g/dL Red Cell Distribution Width 15.4 H 11.8-14.3 % Platelet Count 294 140-450 10^3/uL Mean Platelet Volume 7.4 6.9-10.8 fL Neutrophils (%) (Auto) 47.9 37.0-80.0 % Lymphocytes (%) (Auto) 40.8 10.0-50.0 % Monocytes (%) (Auto) 9.7 0.0-12.0 % Eosinophils (%) (Auto) 0.9 0.0-7.0 % Basophils (%) (Auto) 0.7 0.0-2.0 % Neutrophils # (Auto) 2.0 1.6-8.6 10 ^3/uL Lymphocytes # (Auto) 1.7 0.4-5.4 10 ^3/uL Monocytes # (Auto) 0.4 0-1.3 10 ^3/uL Eosinophils # (Auto) 0 0-0.8 10 ^3/uL Basophils # (Auto) 0 0-0.2 10 ^3/uL Nucleated Red Blood Cells 0.1 % Sodium Level 139 136-145 mmol/L Potassium Level 3.6 3.5-5.1 mmol/L Chloride Level 100 98-107 mmol/L Carbon Dioxide Level 31 20-31 mmol/L Anion Gap 8 5-15 Blood Urea Nitrogen 11 9-23 mg/dL Creatinine 1.24 H 0.550-1.02 mg/dL Glomerular Filtration Rate Calc 60 >90 mL/min BUN/Creatinine Ratio 8.9 L 10.0-20.0 Serum Glucose 65 L 74-106 mg/dL Calcium Level 10.0 8.7-10.4 mg/dL Thyroid Stimulating Hormone (TSH) > 150.00 H 0.55-4.78 uIU/mL Free Thyroxine (T4) Calculated 0.14 L 0.89-1.76 ng/dL Urine Color Colorless Yellow Urine Clarity Clear Clear Urine pH 6.5 5.0-9.0 Urine Specific [place] 1.005 1.001-1.035 Urine Protein Negative Negative Urine Ketones Negative Negative Urine Blood Negative Negative /uL Urine Nitrite Negative Negative Urine Bilirubin Negative Negative Urine Urobilinogen Normal Negative mg/dL Urine Leukocyte Esterase Negative Negative /uL Urine RBC None seen 0 - 4 /hpf Urine Microscopic WBC < 1 0-5 /HPF Urine Squamous Epithelial Cells Few <5 /hpf Urine Bacteria None seen None Seen /hpf Urine Glucose Normal Normal mg/dL POC Glucose 70 70-106 mg/dl SEPSIS Sepsis Screen Date sepsis recognized/suspect: Aug 28, 2025 Time Sepsis recognized/suspect: 1344 Recent Procedure: No On Antibiotic Therapy: No Respiratory Rate >20: No Heart Rate >90: No Temp<36 C (96.8 F) or >38.3 C: No SBP <90 or MAP <65 mmHG: No New Acute Mental Status Change: No Is the patient on CPAP, BIPAP,: No Physician Orders Levothyroxine Injection (Synthroid Injec (08/28/25 20:00) Levothyroxine Tablet (Synthroid Tablet) (08/29/25 06:00) Regular Diet (08/29/25 Breakfast) Basic Metabolic Panel (08/29/25 04:00) Admit (08/28/25 19:49) Ondansetron Hcl (Zofran) (08/28/25 20:00) Condition: Stable (08/28/25 19:49) Acetaminophen Tablet (Tylenol Tablet) (08/28/25 20:00) Bedrest With Bathroom Privileg (08/28/25 19:49) Vital Signs Date Time Temp Pulse Resp B/P (MAP) Pulse Ox O2 Delivery O2 Flow Rate FiO2 08/28/25 20:53 98.6 08/28/25 20:37 98.6 68 20 104/63 (77) 100 98.6 08/28/25 13:43 97.6 78 18 115/71 100 97.6 Laboratory Tests Test 08/28/25 14:18 White Blood Count 4.2 10^3/uL (4.4-10.8) L Medications Medications Dose Ordered Sig/Rosey Route Start Time Stop Time Status Last Admin Dose Admin Acetaminophen 650 mg Q6HP PRN PO 08/28/25 20:00 08/28/25 20:53 650 MG Sodium Chloride 1,000 ml @ 1,000 mls/hr Q1H ONCE IV 08/28/25 14:15 08/28/25 15:14 DC 08/28/25 14:30 1,000 MLS/HR Assessment/Plan Assessment/Plan Assessment Hypothyroid Noncompliant Plan Admit the patient to [facility] to the hospitalist Levothyroxine IV x1 Resume home medications Continue treatment per orders. Plan discussed with: Patient My Orders Orders - ASHLEY MOISE Procedure Category Date Status Time Levothyroxine PHA 08/28/25 Logged Injection (Synthroid 20:00 Levothyroxine Tablet PHA 08/29/25 Logged (Synthroid Tablet) 06:00 Regular Diet DIET 08/29/25 Transmitted Breakfast Basic Metabolic Panel LAB 08/29/25 Verified 04:00 Admit ADMIT 08/28/25 Transmitted 19:49 Ondansetron Hcl PHA 08/28/25 Logged (Zofran) 20:00 Condition: Stable LENNY 08/28/25 In Process 19:49 Acetaminophen Tablet PHA 08/28/25 In Process (Tylenol Tablet) 20:00 Bedrest With Bathroom LENNY 08/28/25 In Process Privileg 19:49 Date of Service: Aug 28, 2025 Billing Provider: ASHLEY MOISE Common Visit Codes: [id number] INP/OBS CARE (MOD) ASHLEY MOISE Aug 28, 2025 21:15
[2025-08-28 22:45] VITALS: BP 97/58; PULSE 55; RESP 16; TEMP 97.8; O2SAT 100
[2025-08-28] MEDS: LEVOTHYROXINE SODIUM 100 MCG/5 ML INJ IV ONE (22:51)
[2025-08-29 01:00] VITALS: BP 88/55; PULSE 57; RESP 19; TEMP 97.9; O2SAT 98
[2025-08-29 05:00] VITALS: BP 90/48; PULSE 50; RESP 18; TEMP 97.5; O2SAT 100
[2025-08-29] MEDS: LEVOTHYROXINE SODIUM 100 MCG TAB PO SCH (05:23)
[2025-08-29 06:22] LABS: Chloride 102 mmol/L (98-107); Potassium 3.8 mmol/L (3.5-5.1); Sodium 139 mmol/L (136-145)
[2025-08-29 06:23] LABS: Anion Gap 8 (5-15); Carbon Dioxide 29 mmol/L (20-31)
[2025-08-29 06:24] LABS: Calcium 8.9 mg/dL (8.7-10.4)
[2025-08-29 06:28] LABS: BUN/Creatinine Ratio 10.6 (10.0-20.0); Blood Urea Nitrogen 11 mg/dL (9-23); Glucose 76 mg/dL (74-106)
[2025-08-29 08:38] VITALS: BP 86/55; PULSE 62; RESP 16; TEMP 98.1; O2SAT 98
[2025-08-29 13:00] VITALS: BP 82/47; PULSE 74; RESP 17; TEMP 97.9; O2SAT 99
[2025-08-29] MEDS: PANTOPRAZOLE 40 MG/10 ML VIAL INJ IV SCH (13:59)
[2025-08-29] MEDS: HYDROCORTISONE SOD SUCC 100 MG/2ML INJ VIAL IV SCH (13:59)
[2025-08-29] MEDS: SODIUM CHLORIDE 0.9% 500 ML IV ONE ×2 (14:02→23:17)
--- NOTE | 2025-08-29 14:44 | DVHPN2 ---
Reviewed: H&P Changes from previous H/P or p: No Changes General: Per HPI Objective Vitals Vital Signs Date Time Temp Pulse Resp B/P (MAP) Pulse Ox O2 Delivery O2 Flow Rate FiO2 08/29/25 08:38 98.1 62 16 86/55 (65) 98 98.1 08/29/25 08:00 Room Air* 0 21 Intake/Output Intake and Output 08/29/25 07:00 Intake Total 237 ml Balance 237 ml Intake Oral 237 ml # Voids 2 Exam Gen: 29-year-old female in mild distress. Skin: Warm, dry, normal color and texture, no rash. HEENT: Normocephalic atraumatic, mucous membranes moist and pink. Neck: Cervical and supraclavicular nodes normal without enlargement, trachea is midline, thyroid gland is normal without masses. Pulmonary: Clear to auscultation and percussion bilaterally. Cardiac: Regular rate and rhythm. No murmur Abdomen: Soft, nontender, nondistended, bowel sounds present all 4 quadrants, no guarding, no rigidity, no organomegaly. Extremities: No cyanosis, clubbing, no edema Neuro: Cranial nerves II through XII grossly intact, normal affect and speech, no focal motor deficits. Medications Current Medications Medications Dose Ordered Sig/Rosey Route Start Time Stop Time Status Last Admin Dose Admin Ondansetron HCl 4 mg Q4HP PRN IV 08/28/25 20:00 Acetaminophen 650 mg Q6HP PRN PO 08/28/25 20:00 08/28/25 20:53 650 MG Hydrocortisone Sodium Succinate 50 mg Q12HR IV 08/29/25 13:15 08/29/25 13:59 50 MG Pantoprazole Sodium 40 mg DAILY IV 08/29/25 13:15 08/29/25 13:59 40 MG Levothyroxine Sodium 50 mcg QAM@0600 IV 08/30/25 06:00 Ceftriaxone Sodium 50 ml @ 100 mls/hr DAILY@09 IV 08/29/25 13:30 08/29/25 13:59 100 MLS/HR Laboratory Results Laboratory Tests 08/28/25 14:18 08/29/25 05:36 Chemistry Test 08/29/25 05:36 Calcium Level 8.9 mg/dL (8.7-10.4) Urinalysis Test 08/28/25 14:15 Urine Color Colorless (Yellow) Urine Clarity Clear (Clear) Urine pH 6.5 (5.0-9.0) Urine Specific [place] 1.005 (1.001-1.035) Urine Protein Negative (Negative) Urine Ketones Negative (Negative) Urine Blood Negative /uL (Negative) Urine Nitrite Negative (Negative) Urine Bilirubin Negative (Negative) Urine Urobilinogen Normal mg/dL (Negative) Urine Leukocyte Esterase Negative /uL (Negative) Urine RBC None seen /hpf (0 - 4) Urine Microscopic WBC < 1 /HPF (0-5) Urine Squamous Epithelial Cells Few /hpf (<5) Urine Bacteria None seen /hpf (None Seen) Urine Glucose Normal mg/dL (Normal) Labs and/or images reviewed: Labs reviewed by me, Image(s) reviewed by me Assessment/Plan Assessment/Plan 29-year-old female presents for evaluation of abnormal lab results. Patient was contacted by her primary care provider to present for further evaluation. She states her TSH levels were elevated. She reports symptoms of fatigue, hair loss, weight gain and intermittent constipation. She reports not taking her levothyroxine for the past two years. No cardiac complaints. - Past Medical History: Hypothyroid, Deion's disease Assessment: Hypotension, possible adrenal shock due to below overt Hypothyroid, complicated with bradycardia and hypotension adrenal insufficiency, unable to rule out Constipation Noncompliant Plan: - Synthroid IV, convert to p.o.prior to discharge Hydrocortisone IV 50 mg B.i.d. - Protonix GI prophylaxis - Prn fluid bolus Continue diet Continue other home medications Med surge Full code Plan discussed with: Patient My Orders Orders - MCKENNA HOUSE MD Procedure Category Date Status Time Hydrocortisone PHA 08/29/25 In Process Succinate Inj 13:15 Pantoprazole PHA 08/29/25 In Process (Protonix) 13:15 Levothyroxine PHA 08/30/25 In Process Injection (Synthroid 06:00 Echo 2d Mode Cardiac US 08/29/25 Logged DOP 13:18 Blood Culture KISHA 08/29/25 In Process 13:18 Ceftriaxone 1gm/50ml PHA 08/29/25 In Process (Rocephin) 13:30 Date of Service: Aug 29, 2025 Billing Provider: MCKENNA HOUSE MD Common Visit Codes: [id number] INP/OBS CARE(HIGH) MCKENNA HOUSE MD Aug 29, 2025 14:44
[2025-08-29 17:53] VITALS: BP 81/51; PULSE 58; RESP 16; TEMP 97.6; O2SAT 100
[2025-08-29 21:00] VITALS: BP 82/48; PULSE 46; RESP 16; TEMP 98.4; O2SAT 100
[2025-08-29] MEDS: MIDODRINE HCL 10 MG TAB PO ONE (23:00)
[2025-08-30 01:00] VITALS: BP 77/40; PULSE 50; RESP 16; TEMP 97.6; O2SAT 98
[2025-08-30 05:00] VITALS: BP 97/62; PULSE 45; RESP 16; TEMP 97.8; O2SAT 95
[2025-08-30] MEDS: LEVOTHYROXINE SODIUM 100 MCG/5 ML INJ IV SCH (05:36)
[2025-08-30 05:38] LABS: Albumin 4.2 g/dL (3.2-4.8); Alkaline Phosphatase 55 U/L (46-116); Anion Gap 9 (5-15); BUN/Creatinine Ratio 10.4 (10.0-20.0); Bilirubin, Total 0.6 mg/dL (0.2-1.0); Blood Urea Nitrogen 11 mg/dL (9-23); Calcium 8.9 mg/dL (8.7-10.4); Carbon Dioxide 27 mmol/L (20-31); Chloride 102 mmol/L (98-107); Potassium 4.4 mmol/L (3.5-5.1); Sodium 138 mmol/L (136-145); Total Protein 7.3 g/dL (5.7-8.2)
[2025-08-30 05:40] LABS: Alanine Aminotransferase 57 U/L (7-40); Glucose 112 mg/dL (74-106)
[2025-08-30 08:28] VITALS: O2SAT 99
[2025-08-30 09:09] VITALS: BP 81/52; PULSE 55; RESP 17; TEMP 97.7; O2SAT 95
[2025-08-30] MEDS: MIDODRINE HCL 10 MG TAB PO SCH (10:26)
[2025-08-30] MEDS: SODIUM CHLORIDE 0.9% 500 ML IV ONE (10:27)
[2025-08-30 12:52] VITALS: BP 92/64; PULSE 49; RESP 16; TEMP 97.5; O2SAT 100
[2025-08-30] MEDS ORDERED: MID10T PO (13:08)
[2025-08-30] MEDS ORDERED: LEVO100T3 PO (13:08)
[2025-08-30] MEDS ORDERED: FAMO20TA10 PO (13:08)
[2025-08-30] MEDS ORDERED: HYDR-4792 PO (13:08)
--- NOTE | 2025-08-30 13:08 | DVHDS2 ---
Discharge Summary Date of Admission Aug 28, 2025 at 19:49 Date of Discharge: Aug 30, 2025 Labs/Diagnostic Data: Laboratory Results Test 08/30/25 04:52 08/28/25 14:18 08/28/25 14:15 08/28/25 13:53 Sodium Level 138 mmol/L (136-145) Potassium Level 4.4 mmol/L (3.5-5.1) Chloride Level 102 mmol/L (98-107) Carbon Dioxide Level 27 mmol/L (20-31) Anion Gap 9 (5-15) Blood Urea Nitrogen 11 mg/dL (9-23) Creatinine 1.06 mg/dL (0.550-1.02) Glomerular Filtration Rate Calc 73 mL/min (>90) BUN/Creatinine Ratio 10.4 (10.0-20.0) Serum Glucose 112 mg/dL (74-106) Calcium Level 8.9 mg/dL (8.7-10.4) Total Bilirubin 0.6 mg/dL (0.2-1.0) Aspartate Amino Transferase (AST) 64 U/L (13-40) Alanine Aminotransferase (ALT) 57 U/L (7-40) Alkaline Phosphatase 55 U/L (46-116) Total Protein 7.3 g/dL (5.7-8.2) Albumin 4.2 g/dL (3.2-4.8) White Blood Count 4.2 10^3/uL (4.4-10.8) Red Blood Count 3.30 10^6/uL (4.0-5.20) Hemoglobin 11.2 g/dL (12.2-16.2) Hematocrit 32.1 % (36.0-46.0) Mean Corpuscular Volume 97.2 fL (80.0-100.0) Mean Corpuscular Hemoglobin 33.9 pg (28.0-32.0) Mean Corpuscular Hemoglobin Concent 34.8 g/dL (32.0-36.0) Red Cell Distribution Width 15.4 % (11.8-14.3) Platelet Count 294 10^3/uL (140-450) Mean Platelet Volume 7.4 fL (6.9-10.8) Neutrophils (%) (Auto) 47.9 % (37.0-80.0) Lymphocytes (%) (Auto) 40.8 % (10.0-50.0) Monocytes (%) (Auto) 9.7 % (0.0-12.0) Eosinophils (%) (Auto) 0.9 % (0.0-7.0) Basophils (%) (Auto) 0.7 % (0.0-2.0) Neutrophils # (Auto) 2.0 10 ^3/uL (1.6-8.6) Lymphocytes # (Auto) 1.7 10 ^3/uL (0.4-5.4) Monocytes # (Auto) 0.4 10 ^3/uL (0-1.3) Eosinophils # (Auto) 0 10 ^3/uL (0-0.8) Basophils # (Auto) 0 10 ^3/uL (0-0.2) Nucleated Red Blood Cells 0.1 % Thyroid Stimulating Hormone (TSH) > 150.00 uIU/mL Free Thyroxine (T4) Calculated 0.14 ng/dL (0.89-1.76) Urine Color Colorless (Yellow) Urine Clarity Clear (Clear) Urine pH 6.5 (5.0-9.0) Urine Specific [place] 1.005 (1.001-1.035) Urine Protein Negative (Negative) Urine Ketones Negative (Negative) Urine Blood Negative /uL (Negative) Urine Nitrite Negative (Negative) Urine Bilirubin Negative (Negative) Urine Urobilinogen Normal mg/dL (Negative) Urine Leukocyte Esterase Negative /uL (Negative) Urine RBC None seen /hpf (0 - 4) Urine Microscopic WBC < 1 /HPF (0-5) Urine Squamous Epithelial Cells Few /hpf (<5) Urine Bacteria None seen /hpf (None Seen) Urine Glucose Normal mg/dL (Normal) POC Glucose 70 mg/dl (70-106) Other Laboratory Tests 08/30/25 04:52 08/28/25 14:18 Brief Hx & Hospital Course: 29-year-old female presents for evaluation of abnormal lab results. Patient was contacted by her primary care provider to present for further evaluation. She states her TSH levels were elevated. She reports symptoms of fatigue, hair loss, weight gain and intermittent constipation. She reports not taking her levothyroxine for the past two years. No cardiac complaints. - Past Medical History: Hypothyroid, Deion's disease 08/30: patient low blood pressure, bradycardic. some dizziness in clinic but improved here in hospital. we started midodrine and hydrocortisone. given iv synthroid. patient remains asymptomatic. BP improving . will need high salt diet and strong medical compliance. stable for DC as plan below. Assessment: Hypotension, possible adrenal shock due to below Overt Hypothyroid, complicated with bradycardia and hypotension Asymptomatic bradycardia, likely due to above Adrenal insufficiency, unable to rule out Constipation Noncompliance Plan: - continue Synthroid 100 mcg a.m., take half ever before breakfast continue stomach with water. - Pepcid 20 mg twice daily for 7 days - Hydrocortisone 10 mg twice daily for 5 days - Midodrine 10 mg twice daily for 14 days, reassess continued use need with PCP in 7 days - high salt diet - continue other home medications - PCP to review echocardiogram results and blood culture results with PCP in 7 day discharge follow up appointment. - DC clinic follow up 7 days. DC clinic to follow up with patient if PCP is unable to make appointments 7 days. Condition at Discharge: Fair Final Diagnosis/Problems List Hypotension, possible adrenal shock due to below Overt Hypothyroid, complicated with bradycardia and hypotension Asymptomatic bradycardia, likely due to above Adrenal insufficiency, unable to rule out Constipation Noncompliance Discharge Disposition: Home Discharge Statement: "Patient was advised to return to the ER or call 911 if any headaches, dizziness, shortness of breath, chest pain, abdominal pain, bleeding, fevers, or worsening of medical condition. Patient was counseled about treatment plan, medications, possible side effects, patientverbalized understanding. All questions were answered to the best of my ability. This discharge took greater then 30 minutes in planning, reviewing documentation, counseling the patient, and discussing with other team members." ASSESSMENT ASSESSMENT Assessment Date of Service: Aug 30, 2025 Billing Provider: MCKENNA HOUSE MD Common Visit Codes: [id number] DISCH DAY >30min MCKENNA HOUSE MD Aug 30, 2025 13:08
[2025-08-30 14:50] VITALS: BP 92/65; PULSE 52; RESP 16; TEMP 97.5; O2SAT 100
--- NOTE | 2025-08-31 01:33 | DVHSR ---
APPROVED REPORT EXAM: Two-dimensional and M-mode echocardiogram with Doppler and color Doppler. Blood Pressure: 97/62 mmHg INDICATION Hypotension RISK FACTORS Height: 5'7", Weight: 158 DIMENSIONS LVDd 4.3 (3.8-5.7cm) LA (2D) 2.8 (1.9-4.0cm) Aortic Root 2.4 (2.0-3.7cm) LVDs 3.0 (2.5-4.0cm) LA (MM) (1.9-4.0cm) Aortic Cusp Exc 1.8 (1.5-2.0cm) EF (%) 58.0 (55-70%) Rt. Atrium 3.6 (1.9-4.0cm) Asc. Aorta 2.6 cm IVSd 0.8 (0.7-1.1cm) RV (D) 3.5 (1.8-2.4cm) PWd 0.7 (0.7-1.1cm) Mitral Valve Mitral Mitral Stenosis E wave 0.80m/s MV Mean GR. mmHg A wave 0.31m/s MV Peak GR. mmHg E/A ratio 2.6 2D MVA cm2 DECEL Time 204ms PRESS 1/2 Time ms Aortic Valve Aortic Valve Aortic Stenosis V1 0.98m/s AO Mean GR. 3mmHg V2 1.06m/s AO Peak GR. 4mmHg LVOT Diameter 2.0 (1.8-2.4cm) Doppler RUDY 2.90cm2 Pulmonic Valve V2 0.69m/s Other Information Quality : Technically Limited Rhythm : Technically limited study due to body habitus. Conclusion LV EF IS 70% NORMAL RV FUNCTION MILD PERICARDIAL EFFUSION IS SEEN ANTERIORLY AND POSTERIORLY NORMAL VALVES NO EVIDENCE OF PERICARDIAL [place] OR RV COLLAPSE SUGGESTION TO REPEAT ECHO AFTER FEW WEEKS AND NEEDED FOR FOLLOW UP OF PERICARDIAL EFFUSION
== END 2025-08-30 15:40 | disposition home or self-care (01) | DRG 427 ==
LOC: ER 13:36 → OVERFLOW 19:49 → EAST 08-29 21:06
PROVIDERS: ADMIT Student in an Organized Health Care Education/Training Program; ATTEND Student in an Organized Health Care Education/Training Program
DX: E03.9 Hypothyroidism, unspecified (principal); E27.2 Addisonian crisis; E27.40 Unspecified adrenocortical insufficiency; F17.210 Nicotine dependence, cigarettes, uncomplicated; K59.00 Constipation, unspecified; I95.9 Hypotension, unspecified; N18.2 Chronic kidney disease, stage 2 (mild); F41.9 Anxiety disorder, unspecified; Z88.3 Allergy status to other anti-infective agents; Z91.199 Patient's noncompliance with other medical treatment and regimen due to unspecified reason
CPT/HCPCS: 36415; 80048; 80053; 81001; 82962; 84439; 84443; 85025; 87040; 93306; 96361; 96374; 99291; G0378; J2470; J3490